=== PATIENT | male | born 1950 | race Caucasian/White ===

== ENCOUNTER 2019-08-15 10:53 | Emergency (ER) | payer OTHER, MEDICARE ==
--- NOTE | 2019-08-15 12:24 | RAD REPORT ---
EXAM DESCRIPTION: RAD - Hip Right 2 View - 08/15/2019 12:11 pm CLINICAL HISTORY: Right hip pain, recent fall COMPARISON: None. FINDINGS: AP and frog-leg views of the right hip were obtained. There is no fracture or dislocation . No acute or destructive bony process seen. Mild degenerative change along the superior acetabular rim. No periarticular abnormality. IMPRESSION: Mild degenerative change without acute finding seen.
--- NOTE | 2019-08-15 12:58 | ER ---
Nurse's Notes [facility] Name: Dileep Hanson Age: 68 yrs Sex: Male : 1950 Arrival Date: 08/15/2019 Time: 10:55 Bed 20 Private MD: Diagnosis: Contusion of right hip Presentation: 08/15 11:01 Presenting complaint: Patient states: RIGHT hip pain x 2 days after falling during a sr5 basketball game. Steady gait to triage. Reports taking Naproxen at home which helps, but still having trouble sleeping due to pain. 11:01 Acuity: WILLOW 4 sr5 11:01 Method Of Arrival: Ambulatory sr5 12:00 Onset of symptoms was August 15, 2019 at 10:00. ae4 13:00 Transition of care: patient was not received from another setting of care. Onset of ae4 symptoms was August 15, 2019. Risk Assessment: Do you want to hurt yourself or someone else? Patient reports no desire to harm self or others. Initial Sepsis Screen: Does the patient meet any 2 criteria? No. Patient's initial sepsis screen is negative. Does the patient have a suspected source of infection? No. Patient's initial sepsis screen is negative. Care prior to arrival: None. Historical: - Allergies: 11:05 Sulfa (Sulfonamide Antibiotics); sr5 - PMHx: 11:05 Hypertension; Diabetes - NIDDM; Kidney stones; CAD; sr5 - Immunization history:: Adult Immunizations up to date, Flu vaccine is up to date. - Social history:: Smoking status: Patient/guardian denies using tobacco. - Ebola Screening: : Patient negative for fever greater than or equal to 101.5 degrees Fahrenheit, and additional compatible Ebola Virus Disease symptoms Patient denies exposure to infectious person Patient denies travel to an Ebola-affected area in the 21 days before illness onset. Screenin:01 Abuse screen: Denies threats or abuse. Tuberculosis screening: No symptoms or risk sr5 factors identified. 12:00 Nutritional screening: No deficits noted. Fall Risk Fall in past 12 months (25 points). ae4 No secondary diagnosis (0 pts). No IV (0 pts). Ambulatory Aid- None/Bed Rest/Nurse Assist (0 pts). Gait- Normal/Bed Rest/Wheelchair (0 pts) Mental Status- Oriented to own ability (0 pts). Assessment: 11:01 General: Appears in no apparent distress. Behavior is calm. Pain: Complains of pain in sr5 right hip Pain currently is 2 out of 10 on a pain scale. 11:30 General: Appears in no apparent distress. comfortable, Behavior is calm, cooperative. ae4 Pain: Complains of pain in right inguinal area, right iliac crest and right hip Pain currently is 3 out of 10 on a pain scale. Neuro: Level of Consciousness is awake, alert, obeys commands, Oriented to person, place, time, situation, Appropriate for age. Cardiovascular: Patient's skin is warm and dry. Respiratory: Airway is patent Respiratory effort is even, unlabored, Respiratory pattern is regular, symmetrical. GI: No signs and/or symptoms were reported involving the gastrointestinal system. : No signs and/or symptoms were reported regarding the genitourinary system. EENT: No signs and/or symptoms were reported regarding the EENT system. Derm: No signs and/or symptoms reported regarding the dermatologic system. Skin is pink, warm \T\ dry. Musculoskeletal: No visible deformity. 12:52 Reassessment: Patient appears in no apparent distress at this time. Patient and/or ss family updated on plan of care and expected duration. Pain level reassessed. Patient is alert, oriented x 3, equal unlabored respirations, skin warm/dry/pink. awaiting disposition Patient denies pain at this time. Vital Signs: 11:01 Pulse 76; Resp 18; Temp 98.2; Pulse Ox 100% on R/A; Weight 95.25 kg (R); Height 6 ft. 2 sr5 in. (187.96 cm); Pain 2/10; 11:03 BP 131 / 72; sr5 12:49 BP 138 / 84; Pulse 80; Resp 16; Pulse Ox 98% on R/A; Pain 0/10; ss 11:01 Body Mass Index 26.96 (95.25 kg, 187.96 cm) sr5 [place] Coma Score: 11:01 Eye Response: spontaneous(4). Verbal Response: oriented(5). Motor Response: obeys sr5 commands(6). Total: 15. Trauma Score (Adult): 11:01 Eye Response: spontaneous(1); Verbal Response: oriented(1); Motor Response: obeys sr5 commands(2); Systolic BP: > 89 mm Hg(4); Respiratory Rate: 10 to 29 per min(4); Lillian Score: 15; Trauma Score: 12 ED Course: 10:55 Patient arrived in ED. as 11:00 Arm band placed on right wrist. ae4 11:01 Patient has correct armband on for positive identification. sr5 11:02 Triage completed. sr5 11:28 Mateo Mirza NP is PHCP. pm1 11:28 Hema Oneil MD is Attending Physician. pm1 11:31 Vinnie Hartman, RN is Primary Nurse. ae4 12:07 X-ray completed. Patient tolerated procedure well. Patient moved back from radiology. mh1 12:09 Hip Right 2 View XRAY In Process Unspecified. EDMS 13:00 No provider procedures requiring assistance completed. Patient did not have IV access ae4 during this emergency room visit. Administered Medications: No medications were administered Outcome: 12:57 Discharge ordered by MD. pm1 13:18 Patient left the ED. ae4 13:18 Discharged to home ambulatory, with significant other. ae4 13:18 Condition: stable 13:18 Discharge instructions given to patient, Instructed on discharge instructions, Demonstrated understanding of instructions. Signatures: Dispatcher [employer] EDND WaliKellie 1 Yareli Morales Shelby, RN RN Mateo Mirza NP CONTRACT ANALYST pm1 Peyman Sage RN RN sr5 Vinnie Hartman, HARSHA RN ae4 Corrections: (The following items were deleted from the chart) 17:45 10:00 Onset of symptoms was August 15, 2019 at 17:44 ae4 ae4
--- NOTE | 2019-08-15 12:58 | EDPHYS ---
Physician Documentation [facility] Name: Dileep Hanson Age: 68 yrs Sex: Male : 1950 Arrival Date: 08/15/2019 Time: 10:55 Bed 20 Private MD: ED Physician Hema Oneil HPI: 08/15 12:20 This 68 yrs old Male presents to ER via Ambulatory with complaints of Fall pm1 Injury, Right Hip Pain. 12:20 Details of fall: The patient fell from an upright position, while standing, and struck pm1 wood ryan. Onset: The symptoms/episode began/occurred 2 day(s) ago. Associated injuries: The patient sustained right hip. Severity of symptoms: in the emergency department the symptoms have improved, a " 2" out of "10". The patient has not experienced similar symptoms in the past. The patient has not recently seen a physician. Playing basketball and pivoted. Tripped on his own feet and landed on his right elbow and right hip. No right elbow pain. Right hip pain that has been relieved with ibuprofen. 0/10 without moving, but 2/10 with weight bearing and movement. No headache, head injury, neck pain, LOC, vomiting. Historical: - Allergies: 11:05 Sulfa (Sulfonamide Antibiotics); sr5 - PMHx: 11:05 Hypertension; Diabetes - NIDDM; Kidney stones; CAD; sr5 - Immunization history:: Adult Immunizations up to date, Flu vaccine is up to date. - Social history:: Smoking status: Patient/guardian denies using tobacco. - Ebola Screening: : Patient negative for fever greater than or equal to 101.5 degrees Fahrenheit, and additional compatible Ebola Virus Disease symptoms Patient denies exposure to infectious person Patient denies travel to an Ebola-affected area in the 21 days before illness onset. ROS: 12:20 Constitutional: Negative for fever, chills, and weight loss, Eyes: Negative for injury, pm1 pain, redness, and discharge, ENT: Negative for injury, pain, and discharge, Neck: Negative for injury, pain, and swelling, Cardiovascular: Negative for chest pain, palpitations, and edema, Respiratory: Negative for shortness of breath, cough, wheezing, and pleuritic chest pain, Abdomen/GI: Negative for abdominal pain, nausea, vomiting, diarrhea, and constipation, Back: Negative for injury and pain. 12:20 Skin: Negative for injury, rash, and discoloration, Neuro: Negative for headache, weakness, numbness, tingling, and seizure. 12:20 MS/extremity: Positive for pain, of the right hip, Negative for decreased range of motion, deformity, ecchymosis. Exam: 12:20 Constitutional: This is a well developed, well nourished patient who is awake, alert, pm1 and in no acute distress. Head/Face: Normocephalic, atraumatic. Neck: Trachea midline, no thyromegaly or masses palpated, and no cervical lymphadenopathy. Supple, full range of motion without nuchal rigidity, or vertebral point tenderness. No Meningismus. Chest/axilla: Normal chest wall appearance and motion. Nontender with no deformity. No lesions are appreciated. Cardiovascular: Regular rate and rhythm with a normal S1 and S2. No gallops, murmurs, or rubs. Normal PMI, no JVD. No pulse deficits. Respiratory: Lungs have equal breath sounds bilaterally, clear to auscultation and percussion. No rales, rhonchi or wheezes noted. No increased work of breathing, no retractions or nasal flaring. Back: No spinal tenderness. No costovertebral tenderness. Full range of motion. Skin: Warm, dry with normal turgor. Normal color with no rashes, no lesions, and no evidence of cellulitis. 12:20 Musculoskeletal/extremity: Extremities: grossly normal except: noted in the right hip: tenderness, There is no evidence of decreased ROM, deformity, ecchymosis, Circulation is intact in all extremities. Sensation intact. 12:20 Neuro: Orientation: is normal, Motor: is normal, moves all fours, Sensation: is normal, no obvious gross deficits. Vital Signs: 11:01 Pulse 76; Resp 18; Temp 98.2; Pulse Ox 100% on R/A; Weight 95.25 kg (R); Height 6 ft. 2 sr5 in. (187.96 cm); Pain 2/10; 11:03 BP 131 / 72; sr5 12:49 BP 138 / 84; Pulse 80; Resp 16; Pulse Ox 98% on R/A; Pain 0/10; ss 11:01 Body Mass Index 26.96 (95.25 kg, 187.96 cm) sr5 [place] Coma Score: 11:01 Eye Response: spontaneous(4). Verbal Response: oriented(5). Motor Response: obeys sr5 commands(6). Total: 15. Trauma Score (Adult): 11:01 Eye Response: spontaneous(1); Verbal Response: oriented(1); Motor Response: obeys sr5 commands(2); Systolic BP: > 89 mm Hg(4); Respiratory Rate: 10 to 29 per min(4); Lillian Score: 15; Trauma Score: 12 MDM: 11:28 Patient medically screened. pm1 12:19 ED course: Refused pain medications. Took ibuprofen prior to arrival and it has helped pm1 his pain. Without movement 0/10. With walking and movement 2/10. 12:56 Data reviewed: vital signs. Data interpreted: Pulse oximetry: on room air is 98 %. pm1 Interpretation: normal. Counseling: I had a detailed discussion with the patient and/or guardian regarding: the historical points, exam findings, and any diagnostic results supporting the discharge/admit diagnosis, radiology results, the need for outpatient follow up, to return to the emergency department if symptoms worsen or persist or if there are any questions or concerns that arise at home. 08/15 11:41 Order name: Hip Right 2 View XRAY; Complete Time: 12:56 pm1 Administered Medications: No medications were administered Disposition: 19:54 Co-signature as Attending Physician, Hema Oneil MD I agree with the assessment and montse plan of care. Disposition: 08/15/19 12:57 Discharged to Home. Impression: Contusion of right hip. - Condition is Stable. - Discharge Instructions: Contusion, Hip Pain. - Medication Reconciliation Form, Thank You Letter, Antibiotic Education, Prescription Opioid Use form. - Follow up: Emergency Department; When: As needed; Reason: Worsening of condition. Follow up: Private Physician; When: 2 - 3 days; Reason: Recheck today's complaints, Continuance of care, Re-evaluation by your physician. - Problem is new. - Symptoms have improved. Signatures: Dispatcher [employer] EDHema Moreira MD MD cha Marinas, Patrick, WINDOWS SYSTEM ADMIN WINDOWS SYSTEM ADMIN pm1 Resecker, Peyman RN RN sr5 Vinnie Hartman RN RN ae4 Corrections: (The following items were deleted from the chart) 13:18 12:57 08/15/2019 12:57 Discharged to Home. Impression: Contusion of right hip. ae4 Condition is Stable. Forms are Medication Reconciliation Form, Thank You Letter, Antibiotic Education, Prescription Opioid Use. Follow up: Emergency Department; When: As needed; Reason: Worsening of condition. Follow up: Private Physician; When: 2 - 3 days; Reason: Recheck today's complaints, Continuance of care, Re-evaluation by your physician. Problem is new. Symptoms have improved. pm1
[2019-08-15 13:49] VITALS: TEMP 98.2
[2019-08-15 13:52] VITALS: BP 138/84; O2SAT 98
== END 2019-08-15 13:18 | disposition home or self-care (01) ==
LOC: ER 10:53
DX: S70.01XA Contusion of right hip, initial encounter (principal); W01.198A Fall on same level from slipping, tripping and stumbling with subsequent striking against other object, initial encounter; Y93.67 Activity, basketball; Y92.9 Unspecified place or not applicable; I10 Essential (primary) hypertension; Z88.2 Allergy status to sulfonamides
CPT/HCPCS: 99283